=== PATIENT | female | born 1980 | race Caucasian/White ===

== ENCOUNTER 2018-12-01 00:46 | Outpatient (CLI) | payer MEDICAID, SELFPAY ==
[2018-12-01 11:31] LABS: Abs Immature Grans 0.05 k/cumm (0.0-0.09); Absolute Basophil Count 0.03 k/cumm (0.0-0.2); Absolute Monocyte Count 1.22 k/cumm (0.11-0.7); Absolute Neutrophil Count 9.95 k/cumm (1.2-6.7); Basophils % 0.2; Eosinophils % 0.8; HCT 42.9 % (36.0-46.0); HGB 13.9 g/dL (12.0-15.5); Immature Grans % 0.3; Lymphocytes % 31.8; Mean Corp. HGB Concentration 32.4 g/dL (32.0-36.0); Mean Corpuscular Hemoglobin 27.9 pg (27.0-33.0); Monocytes % 7.3; Neutrophils % 59.6; Platelet Count 421 x1000/uL (130-400); RBC 4.99 m/cumm (4.00-5.20); White Blood Cell Count 16.69 k/cumm (4.4-10.8)
[2018-12-01 11:32] LABS: Absolute Eosinophil Count 0.13 k/cumm (0.0-0.7); Absolute Lymphocyte Count 5.31 k/cumm (1.2-3.4)
[2018-12-01 11:43] LABS: Iron 81 ug/dL (50-175); Total Iron Binding Capacity 364 ug/dL (250-450); Transferrin Sat 22 % (15-50)
[2018-12-01 11:45] LABS: Hemoglobin A1C 5.8 % (4.5-6.2)
[2018-12-01 11:51] LABS: ALT 25 U/L (12-78); AST 10 U/L (15-37); Albumin 3.2 g/dL (3.4-5.0); Alkaline Phosphatase 75 U/L (46-116); Anion Gap 8.7 mmol/L (3-11); BUN 10 mg/dL (7-18); Bilirubin, Total 0.4 mg/dL (0.2-1.0); CO2 29.3 mmol/L (21.0-32.0); CREATININE 0.67 mg/dL (0.55-1.02); Calcium 8.7 mg/dL (8.5-10.1); Chloride 101 mmol/L (98-107); Cholesterol 165 mg/dL (50-200); Ferritin 56 ng/mL (8-388); Glucose 82 mg/dL (70-100); HDL Cholesterol 42 mg/dL (40-60); LDL CHOLESTEROL 110 mg/dL (<100); Potassium 3.6 mmol/L (3.5-5.1); Sodium 139 mmol/L (136-145); TSH 1.77 uIU/mL (0.358-3.74); Total Protein 7.2 g/dL (6.4-8.2); Triglyceride 77 mg/dL (30-150)
[2018-12-03 10:34] LABS: Transferrin 243 mg/dL (201-352)
[2018-12-03 13:58] LABS: HCG Quant, Pregnancy 21403 mIU/mL (1-3)
== END 2018-12-01 01:06 ==
PROVIDERS: PCP Nurse Practitioner Family; Visit Provider Nurse Practitioner Family
DX: E28.2 Polycystic ovarian syndrome (principal); R06.83 Snoring; R53.83 Other fatigue
CPT/HCPCS: 80053; 80061; 83721; 82728; 83036; 83540; 83550; 84439; 84443; 84466; 84702; 85025